=== PATIENT | female | born 1985 | race African-American/Black ===

== ENCOUNTER 2018-12-21 12:37 | Emergency (ER) | payer OTHER, MEDICAID ==
[~2018-12-21] VITALS: Ht 157.5 cm; Wt 95.6 kg
[2018-12-21] MEDS ORDERED: ONDANSETRON 4 MG ORAL DISINTEGRATING TAB (Q0162 PER 1MG) PO ONE (13:15)
[2018-12-21] MEDS ORDERED: IBUPROFEN 800 MG TAB PO ONE (13:15)
[2018-12-21 13:41] LABS: HEMATOCRIT 38.8 % (36.0-47.0); HEMOGLOBIN 12.6 g/dl (12.0-15.5); MEAN CORPUSCULAR HEMOGLOBIN 32.1 pg (27.0-33.0); MEAN CORPUSCULAR HGB CONC 32.5 g/dl (32.0-36.5); MEAN CORPUSCULAR VOLUME 98.7 fl (80.0-96.0); PLATELET COUNT, AUTOMATED 266 10^3/uL (150-450); RED BLOOD COUNT 3.93 10^6/uL (4.00-5.40); WHITE BLOOD COUNT 7.9 10^3/uL (4.0-10.0)
[2018-12-21 14:08] LABS: BLOOD UREA NITROGEN 13 MG/DL (7-18); CALCIUM LEVEL 9.2 MG/DL (8.5-10.1); CARBON DIOXIDE LEVEL 29 MEQ/L (21-32); CHLORIDE LEVEL 105 MEQ/L (98-107); CREATININE FOR GFR 0.78 MG/DL (0.55-1.30); GLOMERULAR FILTRATION RATE > 60.0 (>60); GLUCOSE, FASTING 140 MG/DL (70-100); POTASSIUM SERUM 4.4 MEQ/L (3.5-5.1); SODIUM LEVEL 139 MEQ/L (136-145)
[2018-12-21] MEDS ORDERED: ISOVUE-370 76% 100ML VIAL (Q9967) As Ordered ONE (14:20)
--- NOTE | 2018-12-21 14:55 | REP ---
Clinical: Right lower quadrant pain with vomiting. Technique: Axial contrast enhanced images from the lung bases to the pubic symphysis using 100 ml Isovue 370 intravenous contrast material with coronal and sagittal re-formations. Findings: Lung bases are clear. Visualized heart and pericardium normal. Liver, spleen, pancreas, gallbladder, bilateral adrenal glands and kidneys are normal. The enteric system is without obstruction or acute inflammatory process. Normal terminal ileum, cecum and appendix identified in the right lower quadrant. Pelvis demonstrates normal bladder and age-appropriate uterus/adnexa. No ascites. No free air. No adenopathy. Abdominal aorta without aneurysm or dissection. Musculoskeletal structures are intact. Impression: 1. No acute abdominopelvic pathology appreciated. 2. Normal right lower quadrant structures including normal appendix and terminal ileum. 3. No ascites, focal inflammatory stranding, or adenopathy. No free air. Electronically Signed by Zeferino Sánchez MD 12/21/2018 02:47 P
[2018-12-21] MEDS ORDERED: IBUP80TA PO (14:57)
[2018-12-21] MEDS ORDERED: ONDA4TAB6 PO (14:57)
[2018-12-21 15:07] VITALS: BP 133/77
== END 2018-12-21 15:09 | disposition home or self-care (01) ==
LOC: M ED 12:37
DX: N94.6 Dysmenorrhea, unspecified (principal); Z88.2 Allergy status to sulfonamides
CPT/HCPCS: 36415; 74177; 80048; 81001; 85027; 99284; Q0162; Q9967

== ENCOUNTER 2023-04-05 11:21 | Day surgery (SDC) | payer OTHER ==
[~2023-04-05] VITALS: Ht 157.5 cm; Wt 101.6 kg
[~2023-04-05 11:21] MED LIST: DUPI300P SQ; ERGO500029 PO; IBUP1TAB7 PO; IBUP80TA PO; OMEP1CAP73 PO; ONDA4TAB6 PO
[2023-04-05] MEDS: NS 1,000 ML IV ONE (12:09)
[2023-04-05] MEDS ORDERED: fentaNYL 100 MCG/2 ML INJECTION As Ordered ONE (12:45)
[2023-04-05] MEDS ORDERED: propofoL 200 MG/20 ML VIAL As Ordered ONE (13:03)
[2023-04-05] MEDS ORDERED: LIDOCAINE 2% 100MG/5ML SDV (FOR ANES.) As Ordered ONE (13:03)
[2023-04-05] MEDS ORDERED: GLYCOPYRROLATE INJ 0.2 MG/ML 2 ML VIAL As Ordered ONE (13:09)
[2023-04-05 13:47] VITALS: BP 137/87; TEMP 97.3; O2SAT 100
== END 2023-04-05 13:51 | disposition home or self-care (01) ==
LOC: M OPP 11:21
PROVIDERS: ATTEND Internal Medicine Gastroenterology
DX: K31.89 Other diseases of stomach and duodenum (principal); K22.89 Other specified disease of esophagus; K29.70 Gastritis, unspecified, without bleeding; K21.00 Gastro-esophageal reflux disease with esophagitis, without bleeding; R12 Heartburn; R11.2 Nausea with vomiting, unspecified; Z79.1 Long term (current) use of non-steroidal anti-inflammatories (NSAID); Z79.60 Long term (current) use of unspecified immunomodulators and immunosuppressants; Z79.899 Other long term (current) drug therapy; Z91.040 Latex allergy status; Z88.2 Allergy status to sulfonamides
CPT/HCPCS: 43239; 88305; J3010

== ENCOUNTER → 2023-10-11 | Outpatient (CLI) | payer OTHER ==
[~2023-10-11] MED LIST changes: +ONDA-282 PO; -ONDA4TAB6 PO
== END ==
LOC: M SLEEP HO 10:49
PROVIDERS: ATTEND Internal Medicine Pulmonary Disease
DX: R40.0 Somnolence (principal)